=== PATIENT | female | born 1965 | race Caucasian/White ===

== ENCOUNTER → 2018-12-04 | Outpatient (REF) | LOC: M LAB LCGH 15:25 | PROVIDERS: ATTEND Obstetrics & Gynecology | DX: N84.1 Polyp of cervix uteri (principal) ==

== ENCOUNTER → 2023-11-22 | Outpatient (REF) | payer BC ==
[2023-11-22 13:03] LABS: APPEARANCE, URINE CLEAR (CLEAR); BACTERIA, URINE AUTO 1+ (NEGATIVE); BILIRUBIN, URINE AUTO NEGATIVE (NEGATIVE); BLOOD, URINE BLOOD 1+ (NEGATIVE); COLOR, URINE STRAW (YELLOW); GLUCOSE, URINE (UA) AUTO NEGATIVE (NEGATIVE); KETONE, URINE AUTO NEGATIVE (NEGATIVE); LEUKOCYTE ESTERASE, URINE AUTO NEGATIVE (NEGATIVE); NITRITE, URINE AUTO NEGATIVE (NEGATIVE); PROTEIN, URINE AUTO NEGATIVE (NEGATIVE); RBC, URINE AUTO 0 /HPF (0-3); SPECIFIC GRAVITY URINE AUTO 1.008 (1.002-1.035); SQUAMOUS EPITHELIAL CELL UR AU 0 /HPF (0-6); UROBILINOGEN, URINE AUTO 0.2 mg/dL (0.0-2.0); WBC, URINE AUTO 0 /HPF (0-3)
== END ==
LOC: M SMT 12:48
PROVIDERS: ATTEND Nurse Practitioner Family
DX: Z01.818 Encounter for other preprocedural examination (principal)

== ENCOUNTER 2023-11-25 08:03 | Day surgery (SDC) | payer BC ==
[~2023-11-25] VITALS: Ht 158.8 cm; Wt 60.5 kg
[~2023-11-25 08:03] MED LIST: GILE1CAP PO; HYDR-3713; TAMS1CAP17 PO; THERTAB52 PO
[2023-11-25] MEDS ORDERED: LR 1,000 ML IV SCH ×2 (08:10→11:40)
[2023-11-25] MEDS ORDERED: IBUP-1114 PO (08:27)
[2023-11-25] MEDS ORDERED: LIDOCAINE 2% 100MG/5ML SDV (FOR ANES.) As Ordered ONE (08:44)
[2023-11-25] MEDS ORDERED: ONDANSETRON 4MG 2ML VIAL As Ordered ONE (08:44)
[2023-11-25] MEDS ORDERED: fentaNYL 100 MCG/2 ML INJECTION As Ordered ONE (08:44)
[2023-11-25] MEDS ORDERED: propofoL 200 MG/20 ML VIAL As Ordered ONE (08:44)
[2023-11-25] MEDS ORDERED: MIDAZOLAM INJ 2MG/2ML VIAL As Ordered ONE (08:44)
[2023-11-25] MEDS ORDERED: ACETAMINOPHEN 1000MG 100ML IV BAG As Ordered ONE (08:44)
[2023-11-25] MEDS: ceFAZolin SOD 2 GM in IV 1 EA IV ONE (11:00)
[2023-11-25] MEDS: ISOVUE-300 61% 100ML VIAL As Ordered ONE (11:10)
[2023-11-25] MEDS ORDERED: ONDANSETRON 4MG 2ML VIAL IV PRN (11:40)
[2023-11-25] MEDS ORDERED: fentaNYL 100 MCG/2 ML INJECTION IV PRN (11:40)
[2023-11-25] MEDS ORDERED: HYDROMORPHONE HCL 0.5 MG/ 0.5 ML SYRINGE IV PRN (11:40)
[2023-11-25] MEDS ORDERED: oxyCODONE 5MG TAB PO PRN (11:40)
[2023-11-25] MEDS ORDERED: OXYB5TAB14 PO (12:04)
[2023-11-25 12:25] VITALS: BP 140/67; TEMP 97.8; O2SAT 100
== END 2023-11-25 12:55 | disposition home or self-care (01) ==
LOC: M SDC 08:03
PROVIDERS: ATTEND Urology
DX: N13.5 Crossing vessel and stricture of ureter without hydronephrosis (principal); Z79.899 Other long term (current) drug therapy
CPT/HCPCS: 52332; 52352; 76000; 82365; C1769; C1894; C2617; J0131; J0690; J1100; J2250; J2405; J3010; Q9967